=== PATIENT | male | born 2005 | race African-American/Black ===

== ENCOUNTER 2024-08-11 20:51 | Emergency (ER) | payer OTHER ==
[~2024-08-11] VITALS: Ht 170.2 cm; Wt 75.0 kg
[2024-08-11 20:57] VITALS: TEMP 98.5
[2024-08-11 22:57] LABS: PLATELET COUNT (AUTO) 197 K/uL (150-450); RED BLOOD CELL COUNT(AUTO) 5.61 MIL/uL (4.50-5.90); RED CELL DISTRIBUTION WIDTH 15.6 % (11.5-14.5); WHITE BLOOD COUNT (AUTO) 6.7 K/uL (4.5-11.0)
[2024-08-11 23:03] LABS: CALCIUM, TOTAL 9.5 mg/dL (8.8-10.5); CREATININE 1.05 mg/dL (0.60-1.30); GLOMERULAR FILTR. RATE CALC > 60 mL/min (>60); GLUCOSE,RANDOM 73 mg/dL (70-110); SODIUM SERUM 139 mmol/L (136-145); UREA NITROGEN, BLOOD 12 mg/dL (7-18)
[2024-08-11 23:09] LABS: ASPARTATE AMINOTRANSFERASE 22.0 U/L (15-37); TOTAL PROTEIN, SERUM 8.0 g/dL (6.4-8.2)
[2024-08-11] MEDS: CIPROFLOXACIN HCL 250 MG TABLET PO ONE (23:39)
[2024-08-12] VITALS: BP 121/71; PULSE 75; RESP 17; O2SAT 98
[2024-08-12] MEDS: DIPHENOXYLATE/ATROP 2.5-0.025 MG TABLET PO ONE (00:28)
[2024-08-12 01:31] LABS: C.DIFF GDH ANTIGEN, Stool Negative (Negative); C.DIFF TOXINS A&B, Stool Negative (Negative)
== END 2024-08-12 00:47 | disposition home or self-care (01) ==
LOC: EMS 20:55
DX: R19.7 Diarrhea, unspecified (principal)
CPT/HCPCS: 80048; 80076; 85025; 87045; 87324; 87449; 89055; 99283